=== PATIENT | female | born 2005 | race Caucasian/White ===

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

== ENCOUNTER 2023-04-03 13:51 | Outpatient (AMB) | payer OTHER, SELFPAY ==
[2023-04-03 14:21] VITALS: BP 118/66; PULSE 66; O2SAT 98; BMI 27.4
--- NOTE | 2023-04-03 14:21 | A.OFFVIS_ITS ---
Intake Vital Signs 04/03/23 14:21 Height 5 ft 4 in Weight 159 lb 8 oz BMI 27.4 BP 118/66 Blood Pressure Location Lt brachial Position Sitting Pulse 66 Pulse Source Pulse Oximeter Pulse Oximetry (%) 98 Oxygen Delivery Method Room Air Intake Visit Reasons: 3month follow up Tension MEDRANO/Migraine with Aura-LVM Intake Note: Pt presents to the office today for a 3 month follow up for tension headaches/migraine with aura. Pt states she started the amitryptyline. pt states she used it everyday for a month but noticed that she had an increased appetite and she states that she struggles with her weight in general so she decided to stop taking it and since then she denies any headaches or migraines at this time. Allergies tree nut Allergy (Severe, Verified 04/03/23 14:23) Anaphylaxis HPI HPI Comments History of Present Illness Details 17-yr-old female presents for f/u visit. Pt denies any significant interval medical changes. Pt stopped Amitriptyline, as it caused significant increased headaches. She has had an occasional regular headache- usually triggered by not eating or sleeping. Using OTC Naproxen less than once a week. Has not had any stabbing headaches. So has not tried Indomethacin yet. Has not had any recent migraine attacks. So has not tried Rizatriptan yet. She has been trying to prioritizing sleeping well and trying to exercise more- cardio and some weight training. [facility] Family History Father Hypertension Alcohol intake: never Patient Tobacco Use Status: Never used Tobacco Review of Systems Const All systems reviewed & are unremarkable except as noted in HPI and below Physical Exam Vital Signs: Last Vital Signs Pulse 66 04/03/23 14:21 BP 118/66 04/03/23 14:21 Pulse Ox 98 04/03/23 14:21 Oxygen Delivery Method Room Air 04/03/23 14:21 BMI result Body Mass Index 27.4 Const General: cooperative and no acute distress Orientation/consciousness: patient oriented x3 HEENT Head: Yes normocephalic Resp Effort & Inspection: normal respiratory effort and able to speak in complete sentences Neuro General: patient oriented x3, gait normal and CN's II-XI intact bilaterally Cognition (Neuro): normal cognition Motor exam (neuro): 5/5 motor strength present throughout Psych Appearance: grossly normal Mental Status: mental status grossly normal Speech and movement: Normal speech and movement present Affect: normal affect Attitude: cooperative Thought process: Normal thought process present Thought content: Normal thought content present Insight: Good insight present (Psych) Judgement: Good judgement present (Psych) Assessment & Plan Assessment & Plan (1) Migraine with aura: Code(s): G43.109 - Migraine with aura, not intractable, without status migrainosus (2) Stabbing headache: Code(s): G44.85 - Primary stabbing headache (3) Headache: Code(s): R51.9 - Headache, unspecified Plan ?For overall headache management: Continue to optimize good self-care, including but not limited to maintaining a healthy diet, adequate fluid intake, adequate sleep, and engaging in regular physical activity. For headache triggers: Track headaches. Light sensitivity tips:Patient may try blue light filtering glasses, green glasses, green light therapy. For sleep: Continue strategies to optimize sleep hygiene. ? For stabbing headache w/o autonomic s/s: Trial Indomethacin 25mg po tid prn- take w/ food- do not take w/ OTC NSAID- initially try at 1st sign of stabbing headache, depending on response may need to try scheduled dose. ? For acute headache treatment: Trial Rizatriptan 10mg tab, 1/2 - 1 tab (5-10mg) at onset of headache, may repeat in 2 hours. Max of 2 tabs (200mg) per 24 hours. May adjunct with OTC Tylenol 650mg q 4 hours, Ibuprofen (liquigel) 600mg q 6 hours, or Naproxen (liquigel) 440mg q 12 hrs prn. Reviewed potential adverse effects of triptans, including but not limited to nausea, fatigue, chest tightness/tingling (usually passes within a few minutes), medication overuse headaches. Previous acute migraine medication trials: Sumatriptan- not fully effective and causes neck stiffness. Acute migraine medication contraindications: None at this time ? For headache prevention medication: Pt stopped Amitriptyline to 37.5mg po qhs. May hold preventive tx at this time. Previous migraine prevention medication trials: Cyproheptadine- ineffective and caused increased appetite. B2 and Mag- ineffective. Migraine prevention medication contraindications: Amitriptyline 37.5mg po qhs- caused increased appetite Future considerations: Propranolol, Topiramate ? f/u in 6 months or sooner prn Coding Level of Care Code Est Pt Level 4 (40132) Diagnoses Migraine with aura G43.109 Stabbing headache G44.85 Headache R51.9
== END 2023-04-03 14:50 | disposition home or self-care (01) ==
PROVIDERS: Visit Provider Nurse Practitioner Family
DX: G43.109 Migraine with aura, not intractable, without status migrainosus (principal); G44.85 Primary stabbing headache
CPT/HCPCS: 99214

== ENCOUNTER → 2023-04-03 13:51 | Outpatient (BNVA) | payer OTHER, SELFPAY | PROVIDERS: Visit Provider Nurse Practitioner Family | DX: R51.9 Headache, unspecified (principal); G44.85 Primary stabbing headache ==

== ENCOUNTER 2023-10-01 09:52 | Outpatient (AMB) | payer OTHER, BC, SELFPAY ==
[2023-10-01 10:11] VITALS: BP 118/72; PULSE 81; O2SAT 98; BMI 27.3
--- NOTE | 2023-10-01 10:11 | MHC.OFFVIS ---
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 Pt denies any significant interval medical changes. Pt reports headaches had increased headaches in the month following her last appt here in Mar. She thinks this was r/t stress and school. Then in her spring- her migraines increased in June and at the end of August and beginning of September. The headaches have since decreased. She has tried Rizatriptan prn- usually after taking Ibuprofen 600mg- and it has been helpful. She has not had the more stabbing and throbbing. So has not yet tried Indomethacin. Baseline headache characteristics: Stabbing headache questionnaire: Severe, comes on suddenly, maybe a twinge/pressure, stabbing/pulsating pain in right upper temporal region, which lasts 20 minutes may then turn into a mild headache that responds Prodrome symptoms: Maybe tired afterwards Migraine headache questionnaire: Aura: Starts with difficulty seeing a letter then blurry vision and watery eyes. Occasionally will also have speech difficulties (not sure what she was saying), unilateral arm tingling, face felt weird like it was droopy but it wasn't). Headache: 8-10/10, Holocranial, throbbing and aching pain a/w photophobia, phonophobia, tiredness. Postdrome: exhaustion PFSH Family History Father Hypertension Social History Alcohol intake: never Patient Tobacco Use Status: Never used Tobacco Physical Exam Vital Signs: Last Vital Signs Pulse 81 10/01/23 10:11 BP 118/72 10/01/23 10:11 Pulse Ox 98 10/01/23 10:11 Oxygen Delivery Method Room Air 10/01/23 10:11 BMI result Body Mass Index 27.3 Const General: cooperative and no acute distress Orientation/consciousness: patient oriented x3 Resp Effort & Inspection: normal respiratory effort and able to speak in complete sentences Neuro General: patient oriented x3 Cranial nerves: Yes CN's II-XII intact bilaterally Cognition (Neuro): normal cognition Psych Appearance: grossly normal Mental Status: mental status grossly normal Speech and movement: Normal speech and movement present Affect: normal affect Attitude: cooperative Assessment & Plan Assessment & Plan (1) Migraine with aura: Code(s): G43.109 - Migraine with aura, not intractable, without status migrainosus Category: Medical (2) Stabbing headache: Code(s): G44.85 - Primary stabbing headache Category: Medical Plan For overall headache management: Continue to optimize good self-care, including but not limited to maintaining a healthy diet, adequate fluid intake, adequate sleep, and engaging in regular physical activity. For headache triggers: Track headaches. Light sensitivity tips:Patient may try blue light filtering glasses, green glasses, green light therapy. For sleep: Continue strategies to optimize sleep hygiene. ? For stabbing headache w/o autonomic s/s: When headache returns, try Indomethacin 25mg po tid prn- take w/ food- do not take w/ OTC NSAID- initially try at 1st sign of stabbing headache, depending on response may need to try scheduled dose. ? For acute headache treatment: Continue Rizatriptan 10mg tab, 1/2 - 1 tab (5-10mg) at onset of headache, may repeat in 2 hours. Max of 2 tabs (200mg) per 24 hours. May adjunct with OTC Tylenol 650mg q 4 hours, Ibuprofen (liquigel) 600mg q 6 hours, or Naproxen (liquigel) 440mg q 12 hrs prn. Previous acute migraine medication trials: Sumatriptan- not fully effective and causes neck stiffness. Acute migraine medication contraindications: None at this time ? For headache prevention medication: Trial Propranolol 10mg bid. Monitor for lightheadedness. Previous migraine prevention medication trials: Cyproheptadine- ineffective and caused increased appetite. B2 and Mag- ineffective. Migraine prevention medication contraindications: Amitriptyline 37.5mg po qhs- caused increased appetite Future considerations: CGRP MaB. ? f/u in 6 months or sooner prn Medications: New propranolol 10 mg PO BID 30 days 60 tabs 3RF Coding Level of Care Code Est Pt Level 4 (24566) Diagnoses Migraine with aura G43.109 Stabbing headache G44.85
== END 2023-10-01 10:53 | disposition home or self-care (01) ==
PROVIDERS: PCP Pediatrics Adolescent Medicine; Visit Provider Nurse Practitioner Family
DX: G43.109 Migraine with aura, not intractable, without status migrainosus (principal); G44.85 Primary stabbing headache
CPT/HCPCS: 99214

== ENCOUNTER → 2023-10-01 09:52 | Outpatient (BNVA) | payer OTHER, BC, SELFPAY | PROVIDERS: PCP Pediatrics Adolescent Medicine; Visit Provider Nurse Practitioner Family ==

== ENCOUNTER 2024-05-04 11:21 | Outpatient (AMB) | payer BC, SELFPAY ==
--- OUTSIDE RECORDS SUMMARY | 2024-05-04 11:23 | XMS_ITS ---
Author Organization [facility] Address [address] [place] [address] Care Team Providers Care Blade Groover Name Role Phone ZACHARIAH RESENDIZ Unavailable [phone] REASON FOR VISIT Epi Pen Encounters Encounter Location Date Provider Diagnosis [id number] [address] 04/24/2024 ZACHARIAH RESENDIZ PLAN OF TREATMENT Next Appt Details Provider Name:ZACHARIAH RESENDIZ, 01/04/2025 08:15:00 AM, [address], [place], [address], Progress Notes * Richard BAÑUELOSOB:2005 (18 yo F)Acc No.[id number]:04/24/2024 Patient:??Anna BAÑUELOS :2005?Age:18 Y?Sex:Fe male Address:[address] [place] [address], [place] [address] * true * Date:??
--- OUTSIDE RECORDS SUMMARY | 2024-05-04 11:23 | XMS_ITS ---
Author Organization [email or web address] [facility] Address [address] [place] [address] Care Team Providers Care Coding Specialist Home Health Name Role Phone WENDY RESENDIZEN Unavailable [phone] REASON FOR VISIT Epi pen prescription MEDICATIONS Medication SIG (Take, Route, Frequency, Duration) Notes Start Date End Date Status EPINEPHrine 0.3 MG/0.3ML as directed Inj ection once for 1 days 04/24/2024 Active Encounters Encounter Location Date Provider Diagnosis [facility] [address] [place] [id number] 04/24/2024 ZACHARIAH RESENDIZ PLAN OF TREATMENT Medication Medication Name Sig Start Date Stop Date Notes EPINEPHrine 0.3 MG/0.3ML as directed Inj ection once for 1 days 04/24/2024 Next Appt Details Provider Name:ZACHARIAH RESENDIZ, 01/04/2025 08:15:00 AM, [address] , [place], [address], Progress Notes * Richard BAÑUELOSOB:2005 (18 yo F)Acc No.[id number]:04/24/2024 Patient:??Anna BAÑUELOS :2005?Age:18 Y?Sex:Fe male Address:[address], [place] [address] * Refills?? Start EPINEPHrine Solution Auto-injector, 0.3 MG/0.3ML, Injection, 2, as directed, once, 1 days, Refills=1 * true * Date:??
--- OUTSIDE RECORDS SUMMARY | 2024-05-04 11:24 | XMS_ITS | Patient Health Record ---
Author Organization [facility] Address [address] [place] [address] Care Team Providers Care Ada Accommodation Consultant Name Role Phone ZACHARIAH RESENDIZ Unavailable [phone] Cassidy Ulloa Unavailable [phone] ALLERGIES Allergen (clinical drug ingredient) Drug/Non Drug Allergy documented on EMR Reaction Allergy Type Onset Date Status polymyxin B Polymyxin B hives Drug Allergy Act luann Tree Nuts anaphylaxis Allergy Active trimethoprim Trimethoprim hives Drug Allergy A ctive REASON FOR REFERRAL No Information MEDICATIONS Medication SIG (Take, Route, Frequency, Duration) Notes Start Date End Date Status Rizatriptan Benzoate 10 MG 1 tablet Oral ly Once a day Not-Taking IUD's Active Amitriptyline HCl 25 MG 1 and 1/2 tablet s at bedtime Orally Once a day Not-Taking Naproxen 500 MG 1 tablet as needed Orally every 12 hrs Not-Taking Ibuprofen 600 MG 1 tablet with food o r milk as needed Orally Three times a day Active EPINEPHrine 0.3 MG/0.3ML as directed Inj ection once for 1 days 04/24/2024 Active SOCIAL HISTORY Tobacco Use: Social History Observation Description Date Details (start date - stop date) Never Smoker NA - NA Sex Assigned At : Social History Observation Description Sex Assigned At Unknown Tobacco Use/Smoking Question Answer Notes Are you a nonsmoker Alcohol Screen (Audit-C) Question Answer Notes Did you have a drink containing alcohol in the p ast year? No Points 0 Interpretation Negative Section Notes: Tob: Non smoker ETOH: Non smoker [facility] PT Tob: Non smoker ETOH: Non smoker [facility] PT Tob: Non smoker ETOH: Non smoker PROBLEMS Problem Type ICD Code Onset Dates Problem Status W/U Status Risk SNOMED Code Notes Problem Coagulation defect, unspecified (D68.9) Active confirmed Coagulation disorder (35023673) Problem Migraine, unspecified, not intractable, with status migrainosus (G43.901) Active confirmed Status migrainosus (179572765) Problem Adult general medical exam (Z00.00) Active confirmed Adult health examination (002836532) Problem Chronic iron deficiency anemia (D50.9) Active confirmed Iron deficien cy anemia (05875319) Problem Encounter for screening for endocrine disorder (Z13.29) Active confirmed Endocrine/metab olic screening (634595865) VITAL SIGNS Heart Rate 79 /min 01/02/2024 Oximetry 99 % 01/02/2024 Blood pressure diastolic 70 mm Hg 01/02/2024 Height 64 in 01/02/2024 Blood pressure systolic 118 mm Hg 01/02/2024 Weight 163.0 lbs 01/02/2024 BMI 27.98 kg/m2 01/02/2024 Encounters Encounter Location Date Provider Diagnosis [address] [facility] [address] [place] [address] 11/27/2023 Cassidy Ulloa [facility] [address] [place] [address] 01/02/2024 ZACHARIAH RESENDIZ Coagulation defect, unspecified D68.9 ; Annual physical exam Z00.00 ; Chronic iron deficiency anemia D50.9 and Migraine, unspecified, not intractable, with status migrainosus G43.[address] [place] [address] 11/21/[address] [facility] [facility] [address] [place] [address] 11/22/2023 ZACHARIAH MARTÍN [facility] [address] [place] [address] 02/03/2024 ZACHARIAH MARTÍN [address] [place] [address] 03/11/2024 ZACHARIAH MARTÍN [address] [place] [address] 04/24/2024 ZACHARIAH MARTÍN [address] [place] [address] 11/19/2023 ZACHARIAH MARTÍN [address] [place] [address] 11/27/2023 ZACHARIAH MARTÍN [address] [place] [address] 02/03/2024 ZACHARIAH RESENDIZ [address] [address] 02/03/2024 ZACHARIAH RESENDIZ [address] [address] 02/04/2024 ZACHARIAH RESENDIZ [address] [address] 04/24/2024 ZACHARIAH RESENDIZ ASSESSMENTS Encounter Date Diagnosis Assessment Notes Treatment Notes Treatment Clinical Notes Section Notes 01/02/2024 Coagulation defect, unspecified (ICD-10 - D68.9) # Chronic iron def. Hx of. Reassess CBC. Lab slip given # Coagulation defect. Eval'd by heme, ? borderline VWB. PT?INR normal # Migraines. Well controlled. # Screenings: UTD # Vaccines: UTD Patient seen and examined. Comprehensive discussion was done on the following. 1. Nutrition: It is important to follow a healthy diet based on lots of vegetables and legumes and good fat. Avoid processed food and processed carbohydrates. Learn to prepare your own meals. Learn to read labels and avoid high fructose corn syrup, processed chemicals added to increase shelf life and preprepared meals. Avoid fast foods. Learn to eat slowly and plan meals for a week. Try to count calories and be mindful off daily calorie intake. Get into the habit of keeping an eye on your weight by using an appropriate scale. Learn to log exercise and discussed fitness Apps like Entelo which can help keep log off calories taken versus calories burned. Local food should be preferred. Discussed Dirty Dozen Versus Clean Fifteen. Discussed healthy supplements like fish oil, Tumeric, Curcumin, Melatonin, Resveratrol, Probiotics, Vitamin-D, Alpha-Lipoic acid, Vitamin-D and coconut oil. 2. It is important to exercise regularly. Is a good habit to walk at least 30-45 minutes a day. Gentle weightlifting with standard precautions to protect the back. Finding activity like cycling or hiking and get into the habit of engaging in it. Stretching before and after the exercises important. It is also important to contact me if there are any problems like shortness of breath, chest pain, back pain and joint or muscle pain associated with the exercise. 3. Discussed age appropriate screening guidelines. Colonoscopy needs to start at age 50 with stool for occult blood as appropriate. There is a new test that can test for genetic abnormalities in the stool sample. This would not replace a colonoscopy but could be used as a screening tool for patients who do not want a colonoscopy. We discussed the importance of early detection of colon cancer. 4. Discussed current guidelines with respect to breast examination, mammogram and pap smear for early detection of breast and cervical cancer. Patient advised to follow up with these appointments. 5. Discussed safe driving and no use of smart phone while driving 6. Age-appropriate immunizations were discussed. A tetanus booster is needed every 10 years. Flu vaccine is recommended every year just before the start of the flu season. Shingles vaccine is recommended after age 50 but not all insurances cover it.Pneumonia vaccine is given after age 65 unless there are certain comorbidities for which it is started earlier. 7. Diagnostic labs were discussed. These could include CBC CMP and lipids with fasting blood glucose and insulin levels. Vitamin D and hemoglobin A1c testing might be appropriate. Case discussed with collaborating physician Gil Vargas who reviewed the assessment and plan. Chart, medications, labs, vital signs reviewed. Dictation was accomplished with the use of [employer] voice recognition software, prone to medical misidentifications and grammatical errors. This is unintentional and the practitioner does try to identify and correct these, but some could still be present. Please do not hesitate to contact practitioner for clarification. All questions answered to patients satisfaction. Patient verbalized understanding of diagnosis and treatments explained. To call sooner prior to next visit it any questions/concerns arise. 01/02/2024 Annual physical exam (ICD-10 - Z00.00) # Chronic iron def. Hx of. Reassess CBC. Lab slip given # Coagulation defect. Eval'd by heme, ? borderline VWB. PT?INR normal # Migraines. Well controlled. # Screenings: UTD # Vaccines: UTD Patient seen and examined. Comprehensive discussion was done on the following. 1. Nutrition: It is important to follow a healthy diet based on lots of vegetables and legumes and good fat. Avoid processed food and processed carbohydrates. Learn to prepare your own meals. Learn to read labels and avoid high fructose corn syrup, processed chemicals added to increase shelf life and preprepared meals. Avoid fast foods. Learn to eat slowly and plan meals for a week. Try to count calories and be mindful off daily calorie intake. Get into the habit of keeping an eye on your weight by using an appropriate scale. Learn to log exercise and discussed fitness Apps like Entelo which can help keep log off calories taken versus calories burned. Local food should be preferred. Discussed Dirty Dozen Versus Clean Fifteen. Discussed healthy supplements like fish oil, Tumeric, Curcumin, Melatonin, Resveratrol, Probiotics, Vitamin-D, Alpha-Lipoic acid, Vitamin-D and coconut oil. 2. It is important to exercise regularly. Is a good habit to walk at least 30-45 minutes a day. Gentle weightlifting with standard precautions to protect the back. Finding activity like cycling or hiking and get into the habit of engaging in it. Stretching before and after the exercises important. It is also important to contact me if there are any problems like shortness of breath, chest pain, back pain and joint or muscle pain associated with the exercise. 3. Discussed age appropriate screening guidelines. Colonoscopy needs to start at age 50 with stool for occult blood as appropriate. There is a new test that can test for genetic abnormalities in the stool sample. This would not replace a colonoscopy but could be used as a screening tool for patients who do not want a colonoscopy. We discussed the importance of early detection of colon cancer. 4. Discussed current guidelines with respect to breast examination, mammogram and pap smear for early detection of breast and cervical cancer. Patient advised to follow up with these appointments. 5. Discussed safe driving and no use of smart phone while driving 6. Age-appropriate immunizations were discussed. A tetanus booster is needed every 10 years. Flu vaccine is recommended every year just before the start of the flu season. Shingles vaccine is recommended after age 50 but not all insurances cover it.Pneumonia vaccine is given after age 65 unless there are certain comorbidities for which it is started earlier. 7. Diagnostic labs were discussed. These could include CBC CMP and lipids with fasting blood glucose and insulin levels. Vitamin D and hemoglobin A1c testing might be appropriate. Case discussed with collaborating physician Gil Vargas who reviewed the assessment and plan. Chart, medications, labs, vital signs reviewed. Dictation was accomplished with the use of [employer] voice recognition software, prone to medical misidentifications and grammatical errors. This is unintentional and the practitioner does try to identify and correct these, but some could still be present. Please do not hesitate to contact practitioner for clarification. All questions answered to patients satisfaction. Patient verbalized understanding of diagnosis and treatments explained. To call sooner prior to next visit it any questions/concerns arise. 01/02/2024 Chronic iron deficiency anemia (ICD-10 - D50.9) # Chronic iron def. Hx of. Reassess CBC. Lab slip given # Coagulation defect. Eval'd by heme, ? borderline VWB. PT?INR normal # Migraines. Well controlled. # Screenings: UTD # Vaccines: UTD Patient seen and examined. Comprehensive discussion was done on the following. 1. Nutrition: It is important to follow a healthy diet based on lots of vegetables and legumes and good fat. Avoid processed food and processed carbohydrates. Learn to prepare your own meals. Learn to read labels and avoid high fructose corn syrup, processed chemicals added to increase shelf life and preprepared meals. Avoid fast foods. Learn to eat slowly and plan meals for a week. Try to count calories and be mindful off daily calorie intake. Get into the habit of keeping an eye on your weight by using an appropriate scale. Learn to log exercise and discussed fitness Apps like Entelo which can help keep log off calories taken versus calories burned. Local food should be preferred. Discussed Dirty Dozen Versus Clean Fifteen. Discussed healthy supplements like fish oil, Tumeric, Curcumin, Melatonin, Resveratrol, Probiotics, Vitamin-D, Alpha-Lipoic acid, Vitamin-D and coconut oil. 2. It is important to exercise regularly. Is a good habit to walk at least 30-45 minutes a day. Gentle weightlifting with standard precautions to protect the back. Finding activity like cycling or hiking and get into the habit of engaging in it. Stretching before and after the exercises important. It is also important to contact me if there are any problems like shortness of breath, chest pain, back pain and joint or muscle pain associated with the exercise. 3. Discussed age appropriate screening guidelines. Colonoscopy needs to start at age 50 with stool for occult blood as appropriate. There is a new test that can test for genetic abnormalities in the stool sample. This would not replace a colonoscopy but could be used as a screening tool for patients who do not want a colonoscopy. We discussed the importance of early detection of colon cancer. 4. Discussed current guidelines with respect to breast examination, mammogram and pap smear for early detection of breast and cervical cancer. Patient advised to follow up with these appointments. 5. Discussed safe driving and no use of smart phone while driving 6. Age-appropriate immunizations were discussed. A tetanus booster is needed every 10 years. Flu vaccine is recommended every year just before the start of the flu season. Shingles vaccine is recommended after age 50 but not all insurances cover it.Pneumonia vaccine is given after age 65 unless there are certain comorbidities for which it is started earlier. 7. Diagnostic labs were discussed. These could include CBC CMP and lipids with fasting blood glucose and insulin levels. Vitamin D and hemoglobin A1c testing might be appropriate. Case discussed with collaborating physician Gil Vargas who reviewed the assessment and plan. Chart, medications, labs, vital signs reviewed. Dictation was accomplished with the use of [employer] voice recognition software, prone to medical misidentifications and grammatical errors. This is unintentional and the practitioner does try to identify and correct these, but some could still be present. Please do not hesitate to contact practitioner for clarification. All questions answered to patients satisfaction. Patient verbalized understanding of diagnosis and treatments explained. To call sooner prior to next visit it any questions/concerns arise. 01/02/2024 Migraine, unspecified, not intractable, with status migrainosus (ICD-10 - G43.901) # Chronic iron def. Hx of. Reassess CBC. Lab slip given # Coagulation defect. Eval'd by heme, ? borderline VWB. PT?INR normal # Migraines. Well controlled. # Screenings: UTD # Vaccines: UTD Patient seen and examined. Comprehensive discussion was done on the following. 1. Nutrition: It is important to follow a healthy diet based on lots of vegetables and legumes and good fat. Avoid processed food and processed carbohydrates. Learn to prepare your own meals. Learn to read labels and avoid high fructose corn syrup, processed chemicals added to increase shelf life and preprepared meals. Avoid fast foods. Learn to eat slowly and plan meals for a week. Try to count calories and be mindful off daily calorie intake. Get into the habit of keeping an eye on your weight by using an appropriate scale. Learn to log exercise and discussed fitness Apps like Entelo which can help keep log off calories taken versus calories burned. Local food should be preferred. Discussed Dirty Dozen Versus Clean Fifteen. Discussed healthy supplements like fish oil, Tumeric, Curcumin, Melatonin, Resveratrol, Probiotics, Vitamin-D, Alpha-Lipoic acid, Vitamin-D and coconut oil. 2. It is important to exercise regularly. Is a good habit to walk at least 30-45 minutes a day. Gentle weightlifting with standard precautions to protect the back. Finding activity like cycling or hiking and get into the habit of engaging in it. Stretching before and after the exercises important. It is also important to contact me if there are any problems like shortness of breath, chest pain, back pain and joint or muscle pain associated with the exercise. 3. Discussed age appropriate screening guidelines. Colonoscopy needs to start at age 50 with stool for occult blood as appropriate. There is a new test that can test for genetic abnormalities in the stool sample. This would not replace a colonoscopy but could be used as a screening tool for patients who do not want a colonoscopy. We discussed the importance of early detection of colon cancer. 4. Discussed current guidelines with respect to breast examination, mammogram and pap smear for early detection of breast and cervical cancer. Patient advised to follow up with these appointments. 5. Discussed safe driving and no use of smart phone while driving 6. Age-appropriate immunizations were discussed. A tetanus booster is needed every 10 years. Flu vaccine is recommended every year just before the start of the flu season. Shingles vaccine is recommended after age 50 but not all insurances cover it.Pneumonia vaccine is given after age 65 unless there are certain comorbidities for which it is started earlier. 7. Diagnostic labs were discussed. These could include CBC CMP and lipids with fasting blood glucose and insulin levels. Vitamin D and hemoglobin A1c testing might be appropriate. Case discussed with collaborating physician Gil Vargas who reviewed the assessment and plan. Chart, medications, labs, vital signs reviewed. Dictation was accomplished with the use of [employer] voice recognition software, prone to medical misidentifications and grammatical errors. This is unintentional and the practitioner does try to identify and correct these, but some could still be present. Please do not hesitate to contact practitioner for clarification. All questions answered to patients satisfaction. Patient verbalized understanding of diagnosis and treatments explained. To call sooner prior to next visit it any questions/concerns arise. PLAN OF TREATMENT Pending Test Test Name Order Date PT/INR 10/16/2022 COMPREHENSIVE METABOLIC PANEL 01/02/2024 CBC (INCLUDES DIFF/PLT) 01/02/2024 TSH W/REFLEX TO FT4 01/02/2024 Next Appt Details Provider Name:ZACHARIAH RESENDIZ, 01/04/2025 08:15:00 AM, [address], [place], [address], Insurance Providers Payer Name Payer Address Payer Phone Subscriber Number Group Number Insured Name Patient Relationship to Insured Coverage Start Date Coverage End Date [facility] [address] [place] [address] [phone] [id number] Anna Kan Self - patient is the insured 3 MEDICAL (GENERAL) HISTORY Medical History History ICD Code Migraine, unspecified, not intractable, without status migrainosus G43.909 Seasonal allergies J30.2 Iron deficiency anemia, unspecified D50. 9 Borderline Von Willebrand Surgical History Surgery Date(Month/Year) Septoplasty Nasal 09/01/2020
--- OUTSIDE RECORDS SUMMARY | 2024-05-04 11:24 | XMS_ITS ---
Author Organization [facility] Address [address] [place] [address] Care Team Providers Care Food Service Employee Name Role Phone ZACHARIAH RESENDIZ Unavailable [phone] REASON FOR VISIT anxiety Encounters Encounter Location Date Provider Diagnosis [address] [place] [address] 03/11/2024 ZACHARIAH RESENDIZ PLAN OF TREATMENT Next Appt Details Provider Name:ZACHARIAH RESENDIZ, 01/04/2025 08:15:00 AM, [address], [place], [address], Progress Notes * Richard BAÑUELOSOB:2005 (18 yo F)Acc No.[id number]:03/11/2024 Patient:??Anna BAÑUELOS :2005?Age:18 Y?Sex:Fe male Address:[address] [place] [address], [place] [address] * true * Date:??
[2024-05-04 11:37] VITALS: BP 112/70; BMI 27.3
--- NOTE | 2024-05-04 11:37 | MHC.OFFVIS ---
Vital Signs 05/04/24 11:37 Height 5 ft 4 in Weight 159 lb BMI 27.3 BP 112/70 Blood Pressure Location Rt brachial Position Sitting Intake Visit Reasons: 7 Month F/U Intake Note: Patient presents for follow up Allergies tree nut Allergy (Severe, Verified 05/04/24 11:43) Anaphylaxis Medication List - Last Reconciled 05/04/24 by RONALD Peterson amitriptyline 37.5 mg (1.5 x 25 mg) PO BEDTIME 30 days epinephrine IM fremanezumab-vfrm (Ajovy) 675 mg (4.5 mL) subcut ONCE 90 days ibuprofen 600 mg PO Q6H indomethacin 25 mg PO TID PRN 30 days levonorgestrel (Liletta) intrauterine naproxen 250 mg PO BID PRN propranolol 10 mg PO BID 30 days rizatriptan 5 - 10 mg (0.5 - 1 x 10 mg) PO Q2H PRN 28 days HPI Comments Details: 18-yr-old female presents for f/u visit of migraine. Pt denies any significant interval medical changes. She will be doing a semester abroad in [place]- May 17-August 21, and asks if she can happen 90 day refill of her rizatriptan and for advice on how to transport Ajovy internationally. She did try the propranolol- stopped after 2 weeks- caused her to have a head curtis/tightness. Thus, patient was tried on Ajovy, which after a few months has become very effective in reducing her monthly migraine days. She has not had a migraine since January. She has an occasional mild headache. She has not needed to use Rizatriptan prn recently. More recently is using Ibuprofen 800 mg with good effect- does use this for over body aches and pains as well. She has not had the more stabbing and throbbing. So has not yet tried Indomethacin. Baseline headache characteristics: Stabbing headache questionnaire: Severe, comes on suddenly, maybe a twinge/pressure, stabbing/pulsating pain in right upper temporal region, which lasts 20 minutes may then turn into a mild headache that responds Prodrome symptoms: Maybe tired afterwards Migraine headache questionnaire: Aura: Starts with difficulty seeing a letter then blurry vision and watery eyes. Occasionally will also have speech difficulties (not sure what she was saying), unilateral arm tingling, face felt weird like it was droopy but it wasn't). Headache: 8-10/10, Holocranial, throbbing and aching pain a/w photophobia, phonophobia, tiredness. Postdrome: exhaustion PFSH Family History Father Hypertension Social History Alcohol intake: never Patient Tobacco Use Status: Never used Tobacco Physical Exam Vital Signs: Last Vital Signs BP 112/70 05/04/24 11:37 BMI result Body Mass Index 27.3 Const General: cooperative and no acute distress Orientation/consciousness: patient oriented x3 Resp Effort & Inspection: normal respiratory effort and able to speak in complete sentences Neuro General: patient oriented x3 Cranial nerves: Yes CN's II-XII intact bilaterally Cognition (Neuro): normal cognition Psych Appearance: grossly normal Mental Status: mental status grossly normal Speech and movement: Normal speech and movement present Affect: normal affect Attitude: cooperative Assessment & Plan Assessment & Plan (1) Migraine with aura: Code(s): G43.109 - Migraine with aura, not intractable, without status migrainosus Category: Medical (2) Stabbing headache: Code(s): G44.85 - Primary stabbing headache Category: Medical Plan For overall headache management: Continue to optimize good self-care, including but not limited to maintaining a healthy diet, adequate fluid intake, adequate sleep, and engaging in regular physical activity. For headache triggers: Track headaches. Light sensitivity tips:Patient may try blue light filtering glasses, green glasses, green light therapy. For sleep: Continue strategies to optimize sleep hygiene. ? For stabbing headache w/o autonomic s/s: When headache returns, try Indomethacin 25mg po tid prn- take w/ food- do not take w/ OTC NSAID- initially try at 1st sign of stabbing headache, depending on response may need to try scheduled dose. ? For acute headache treatment: Continue ibuprofen 800 mg t.i.d. p.r.n.- we will send a prescription for this, as in [place], a prescription is required for all NSAIDs. Continue Rizatriptan 10mg tab, 1/2 - 1 tab (5-10mg) at onset of headache, may repeat in 2 hours. Max of 2 tabs (200mg) per 24 hours. May adjunct with OTC Tylenol 650mg q 4 hours, Ibuprofen (liquigel) 600mg q 6 hours, or Naproxen (liquigel) 440mg q 12 hrs prn. Previous acute migraine medication trials: Sumatriptan- not fully effective and causes neck stiffness. Acute migraine medication contraindications: None at this time ? For headache prevention medication: Continue Ajovy, as patient has had greater than 50% reduction monthly migraine days. As she has tolerated Ajovy well, and will be traveling for a semester abroad, adjust Ajovy dosing from 225 mg subcu q.month to 675 mg subcu Q 3 months. Previous migraine prevention medication trials: Cyproheptadine- ineffective and caused increased appetite. B2 and Mag- ineffective. Migraine prevention medication contraindications: Amitriptyline 37.5mg po qhs- caused increased appetite. Propranolol 10mg bid- not tolerated. Future considerations: CGRP MaB. All current medication orders refilled with 90 day supply to accommodate per patient's upcoming semester abroad traveled to [facility]. She is advised to carry on medications in their original prescription bottles. She will take her Ajovy on the day she is leaving for [facility]- as this is the day she is due for her next Ajovy injection. ? f/u in 6 months or sooner prn Medications: New ibuprofen 800 mg PO Q6-8H PRN 90 tabs 1RF pain 90 days Changed From fremanezumab-vfrm (Ajovy) administer 225mg sc q month 225 mg (1.5 mL) subcut ONCE 30 days 1.5 mL 6RF To fremanezumab-vfrm (Ajovy) administer 225mg x's 3 (total 675mg) sc q 3 month 675 mg (4.5 mL) subcut ONCE 4.5 mL 3RF 90 days From rizatriptan max 2 tabs per day or 4 tabs per week 5 - 10 mg (0.5 - 1 x 10 mg) PO Q2H 28 days PRN 12 tabs 3RF migraine headache To rizatriptan max 2 tabs per day or 4 tabs per week 5 - 10 mg (0.5 - 1 x 10 mg) PO Q2H PRN 36 tabs 3RF migraine headache 90 days Discontinued amitriptyline Discontinued Reason: Doctor's Order 37.5 mg (1.5 x 25 mg) PO BEDTIME 30 days 45 tabs 3RF propranolol Discontinued Reason: Doctor's Order 10 mg PO BID 30 days 60 tabs 3RF Coding Level of Care Code Est Pt Level 4 (47350) Diagnoses Migraine with aura G43.109 Stabbing headache G44.85
== END 2024-05-04 12:21 | disposition home or self-care (01) ==
PROVIDERS: PCP Physician Assistant Medical; Visit Provider Nurse Practitioner Family
DX: G43.109 Migraine with aura, not intractable, without status migrainosus (principal); G44.85 Primary stabbing headache
CPT/HCPCS: 99214

== ENCOUNTER 2024-11-02 11:17 | Outpatient (AMB) | payer BC, SELFPAY ==
[2024-11-02 11:30] VITALS: BP 110/78; PULSE 62; O2SAT 100; BMI 29.0
--- NOTE | 2024-11-02 11:30 | A.OFFVIS_ITS ---
Vital Signs 11/02/24 11:30 Height 5 ft 4 in Weight 169 lb BMI 29.0 BP 110/78 Blood Pressure Location Lt brachial Position Sitting Pulse 62 Pulse Source Pulse Oximeter Pulse Oximetry (%) 100 Oxygen Delivery Method Room Air Intake Visit Reasons: 6 Month F/U Intake Note: Patient presents follow up for migraines. Patient states migraines have been better and more under control. 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 Pt denies any significant interval medical changes. 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 Patient reports she is really having bothersome migraine attack. She continues to have occasional mild headache. She recently had a headache we are from the back of the head, that was not quite like a typical migraine, but responded well to a prn rizatriptan She continues to tolerate Ajovy well- notes she has this injection site discomfort and reaction when using abdomen versus anterior thigh injection site. She uses rizatriptan as needed, as well as Ibuprofen 800 mg with good effect. Uses ibuprofen for general body aches and pains as well. She had 1 recent episode of upper left frontal/parietal stabbing and throbbing headache, which was very intense and lasts for less than 5 minutes. She has not yet tried Indomethacin. Baseline headache characteristics: Stabbing headache questionnaire: Severe, comes on suddenly, maybe a twinge/pressure, stabbing/pulsating pain in right upper temporal region, which lasts 20 minutes may then turn into a mild headache that responds Prodrome symptoms: Maybe tired afterwards Migraine headache questionnaire: Aura: Starts with difficulty seeing a letter then blurry vision and watery eyes. Occasionally will also have speech difficulties (not sure what she was saying), unilateral arm tingling, face felt weird like it was droopy but it wasn't). Headache: 8-10/10, Holocranial, throbbing and aching pain a/w photophobia, phonophobia, tiredness. Postdrome: exhaustion PFSH Family History Father Hypertension Social History Alcohol intake: never Patient Tobacco Use Status: Never used Tobacco Physical Exam Vital Signs: Last Vital Signs Pulse 62 11/02/24 11:30 BP 110/78 11/02/24 11:30 Pulse Ox 100 11/02/24 11:30 Oxygen Delivery Method Room Air 11/02/24 11:30 BMI result Body Mass Index 29.0 Const General: cooperative and no acute distress Orientation/consciousness: patient oriented x3 Resp Effort & Inspection: normal respiratory effort and able to speak in complete sentences Neuro General: patient oriented x3 Cranial nerves: Yes CN's II-XII intact bilaterally Cognition (Neuro): normal cognition Psych Appearance: grossly normal Mental Status: mental status grossly normal Speech and movement: Normal speech and movement present Affect: normal affect Attitude: cooperative Assessment & Plan Assessment & Plan (1) Migraine with aura: Code(s): G43.109 - Migraine with aura, not intractable, without status migrainosus Category: Medical Qualifiers: Intractability: not intractable Status migrainosus presence: without status migrainosus Qualified Code(s): G43.109 - Migraine with aura, not intractable, without status migrainosus (2) Stabbing headache: Code(s): G44.85 - Primary stabbing headache Category: Medical Plan For overall headache management: Continue to optimize good self-care, including but not limited to maintaining a healthy diet, adequate fluid intake, adequate sleep, and engaging in regular physical activity. For headache triggers: Track headaches. Light sensitivity tips:Patient may try blue light filtering glasses, green glasses, green light therapy. For sleep: Continue strategies to optimize sleep hygiene. ? For stabbing headache w/o autonomic s/s: If stabbing headache becomes more frequent, try Indomethacin 25mg po tid prn- take w/ food- do not take w/ OTC NSAID- initially try at 1st sign of stabbing headache, depending on response may need to try scheduled dose. ? For acute headache treatment: Continue ibuprofen 800 mg t.i.d. p.r.n Continue Rizatriptan 10mg tab, 1/2 - 1 tab (5-10mg) at onset of headache, may r epeat in 2 hours. Max of 2 tabs (200mg) per 24 hours. May adjunct with OTC Tylenol 650mg q 4 hours, Ibuprofen (liquigel) 600mg q 6 hours, or Naproxen (liquigel) 440mg q 12 hrs prn. Previous acute migraine medication trials: Sumatriptan- not fully effective and causes neck stiffness. Acute migraine medication contraindications: None at this time ? For headache prevention medication: Continue Ajovy, as patient has had greater than 50% reduction monthly migraine days. Resume Ajovy 225 mg subcu q.month (however, patient may adjusted Ajovy to 675 mg subcu Q 3 months as needed). Previous migraine prevention medication trials: Cyproheptadine- ineffective and caused increased appetite. B2 and Mag- ineffective. Migraine prevention medication contraindications: Amitriptyline 37.5mg po qhs- caused increased appetite. Propranolol 10mg bid- not tolerated. ? f/u in 6 months or sooner prn Medications: Refilled rizatriptan max 2 tabs per day or 4 tabs per week 5 - 10 mg (0.5 - 1 x 10 mg) PO Q2H PRN 36 tabs 6RF migraine headache 90 days Coding Level of Care Code Est Pt Level 4 (15213) Diagnoses Migraine with aura and without status migrainosus, not intractable G43.109 Intractability: not intractable Status migrainosus presence: without status migrainosus Stabbing headache G44.85
--- OUTSIDE RECORDS SUMMARY | 2024-11-02 12:55 | XMS_ITS | Clinical Summary ---
Author Organization 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 Role Phone Pcp, No Primary Care Provider [phone] Allergies No known active allergies Medications Ajovy Autoinjector 225 mg/1.5 mL atIn 4 Active pseudoephedrine (SUDAFED) 120 mg 12 hr tablet Take 1 tablet (120 mg total) by mouth every 12 (twelve) hours 60 tablet 11 4 04/03/20 25 Active sodium chloride (OCEAN) 0.65 % nasal spray Instill 1 spray into each nostril as needed for congestion or rhinitis 15 mL 12 4 04/03/20 25 Active Active Problems No known active problems Social History Tobacco Use Types Packs/Day Years Used Date Smoking Tobacco: Never Passive Smoke Exposure: Never Smokeless Tobacco: Never Tobacco Cessation:Counseling Given: Not Answered Comments Unknown Sex and Gender Information Value Date Recorded Sex Assigned at Not on file Legal Sex Female 11:39 AM EST Gender Identity Not on file Sexual Orientation Not on file Last Filed Vital Signs Vital Sign Reading Time Taken Comments Blood Pressure 124/68 04/03/2024 11:35 AM EST Pulse 73 04/03/2024 11:35 AM EST Temperature 36.7 C (98 F) 04/03/2024 11:35 AM EST Respiratory Rate 18 04/03/2024 11:35 AM EST Oxygen Saturation 98% 04/03/2024 11:35 AM EST Inhaled Oxygen Concentration - - Weight - - Height - - Body Mass Index - - Plan of Treatment Health Maintenance Due Date Last Done Comments Depression: Screening Annually using PHQ-2/9 in Adults 18 yrs or above (or HM Modifier)([facility]) 09/09/2021 Hepatitis C Virus Infection in Adolescents and Adults: Screening (or Modifier) ([facility]) 09/09/2021 SDOH Screening Reminder: Annually for all adults ([facility]) 09/09/2021 COVID-19 Vaccine Screening: Initial Series and Booster Status ([facility]) (2023- season) 2024 Cervical Cancer Screenin-65 yrs of age (or Modifier) 09/09/2024 Cervical Cancer Screening: Pap every 3 yrs pts age 21-65 09/09/2024 Cervical Cancer: Pap Screening with Modifier timing ([facility]) 09/09/2024 Cervical Cancer: hrHPV alone or with cotesting Pap for Pts 30-65yrs screening every 5yrs ([facility]) 09/09/2024 DTaP/Tdap/Td Vaccines ([facility]) (7 - Td or Tdap) 11/11/2024 11/11/2014, 10/07/2008, 03/13/2005, Additional history exists Flu Vaccination: Yearly for ages 18mos through 64 years (or Modifier)([facility]) 12/11/2024 Zoster/Shingles Vaccine Series Screening: Adults aged 18+ yrs (or HM Modifiers)([facility]) (1 of 2) 09/09/2053 10/02/2007, 09/11/2004 Pneumococcal Vaccination Screening: Pts 0-19 & 19-49 yrs of age ([facility]) Aged Out 09/11/2004, 03/23/2004, 01/24/2004, Additional history exists No longer eligible based on patient's age to complete this topic Medical Devices Not on file Insurance [facility] Care 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
== END 2024-11-02 12:30 | disposition home or self-care (01) ==
LOC: HO.HSMS 11:18
PROVIDERS: PCP Physician Assistant Medical; Visit Provider Nurse Practitioner Family
DX: G43.109 Migraine with aura, not intractable, without status migrainosus (principal); G44.85 Primary stabbing headache
CPT/HCPCS: 99214

== ENCOUNTER → 2024-11-02 11:17 | Outpatient (BNVA) | payer BC, SELFPAY | PROVIDERS: PCP Physician Assistant Medical; Visit Provider Nurse Practitioner Family | DX: Z13.89 Encounter for screening for other disorder (principal) ==

== ENCOUNTER 2025-04-30 11:22 | Outpatient (AMB) | payer BC, SELFPAY ==
[2025-04-30 11:31] VITALS: BP 120/74; PULSE 86; O2SAT 99; BMI 29.9
--- NOTE | 2025-04-30 11:31 | A.OFFVIS_ITS ---
Vital Signs 04/30/25 11:31 Height 5 ft 4 in Weight 174 lb BMI 29.9 BP 120/74 Blood Pressure Location Rt brachial Position Sitting Pulse 86 Pulse Source Pulse Oximeter Pulse Oximetry (%) 99 Oxygen Delivery Method Room Air Intake Visit Reasons: 6m follow up Intake Note: Patient presents follow up for migraines. Patient states migraines have been better and more under control. 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 Pt denies any significant interval medical changes. 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 She has started doing PT clinics once a week. Patient reports she is rarely having a bothersome migraine attack. She may have an occasional mild headache. She continues to tolerate Ajovy well- notes she has this injection site discomfort and reaction when using abdomen versus anterior thigh injection site. She uses rizatriptan as needed, as well as Ibuprofen 800 mg with good effect. Uses ibuprofen for general body aches and pains as well. No recent reports of brief intense upper left frontal/parietal stabbing and throbbing headache. Baseline headache characteristics: Stabbing headache questionnaire: Severe, comes on suddenly, maybe a twinge/pressure, stabbing/pulsating pain in right upper temporal region, which lasts 20 minutes may then turn into a mild headache that responds Prodrome symptoms: Maybe tired afterwards Migraine headache questionnaire: Aura: Starts with difficulty seeing a letter then blurry vision and watery eyes. Occasionally will also have speech difficulties (not sure what she was saying), unilateral arm tingling, face felt weird like it was droopy but it wasn't). Headache: 8-10/10, Holocranial, throbbing and aching pain a/w photophobia, phonophobia, tiredness. Postdrome: exhaustion PFSH Family History Father Hypertension Social History Alcohol intake: never Patient Tobacco Use Status: Never used Tobacco Physical Exam Vital Signs: Last Vital Signs Pulse 86 04/30/25 11:31 BP 120/74 04/30/25 11:31 Pulse Ox 99 04/30/25 11:31 Oxygen Delivery Method Room Air 04/30/25 11:31 BMI result Body Mass Index 29.9 Const General: cooperative and no acute distress Orientation/consciousness: patient oriented x3 Resp Effort & Inspection: normal respiratory effort and able to speak in complete sentences Neuro General: patient oriented x3 Cranial nerves: Yes CN's II-XII intact bilaterally Cognition (Neuro): normal cognition Psych Appearance: grossly normal Mental Status: mental status grossly normal Speech and movement: Normal speech and movement present Affect: normal affect Attitude: cooperative Assessment & Plan Assessment & Plan (1) Migraine with aura: Code(s): G43.109 - Migraine with aura, not intractable, without status migrainosus Category: Medical Qualifiers: Intractability: not intractable Status migrainosus presence: without status migrainosus Qualified Code(s): G43.109 - Migraine with aura, not intractable, without status migrainosus (2) Stabbing headache: Code(s): G44.85 - Primary stabbing headache Category: Medical Plan For overall headache management: Continue to optimize good self-care, including but not limited to maintaining a healthy diet, adequate fluid intake, adequate sleep, and engaging in regular physical activity. For headache triggers: Track headaches. Light sensitivity tips:Patient may try blue light filtering glasses, green glasses, green light therapy. For sleep: Continue strategies to optimize sleep hygiene. ? For stabbing headache w/o autonomic s/s: If stabbing headache becomes more frequent, try Indomethacin 25mg po tid prn- take w/ food- do not take w/ OTC NSAID- initially try at 1st sign of stabbing headache, depending on response may need to try scheduled dose. ? For acute headache treatment: Continue ibuprofen 800 mg t.i.d. p.r.n Continue Rizatriptan 10mg tab, 1/2 - 1 tab (5-10mg) at onset of headache, may repeat in 2 hours. Max of 3 tabs (30 mg) per 24 hours or 6 tabs per week. May adjunct with OTC Tylenol 650mg q 4 hours, Ibuprofen (liquigel) 600-800mg every 6-8 hours, or Naproxen (liquigel) 440mg every 12 hrs prn. Previous acute migraine medication trials: Sumatriptan- not fully effective and causes neck stiffness. Acute migraine medication contraindications: None at this time ? For headache prevention medication: Continue Ajovy, as patient has had greater than 50% reduction monthly migraine days. * Ajovy 225 mg subcu injection, 225 mg injection every month or 675 mg injection every 3 months Previous migraine prevention medication trials: Cyproheptadine- ineffective and caused increased appetite. B2 and Mag- ineffective. Migraine prevention medication contraindications: Amitriptyline 37.5mg po qhs- caused increased appetite. Propranolol 10mg bid- not tolerated. ? f/u in 6 months or sooner prn Medications: Changed From rizatriptan max 2 tabs per day or 4 tabs per week 5 - 10 mg (0.5 - 1 x 10 mg) PO Q2H 90 days PRN 36 tabs 6RF migraine headache To rizatriptan max 3 tabs per day or 6 tabs per week 5 - 10 mg (0.5 - 1 x 10 mg) PO Q2H PRN 36 tabs 6RF migraine headache 90 days Refilled fremanezumab-vfrm (Ajovy) administer 225mg x's 3 (total 675mg) sc q 3 month 675 mg (4.5 mL) subcut ONCE 4.5 mL 3RF 90 days ibuprofen 800 mg PO Q6-8H PRN 90 tabs 1RF pain 90 days Coding Level of Care Code Est Pt Level 4 (96316) Diagnoses Migraine with aura and without status migrainosus, not intractable G43.109 Intractability: not intractable Status migrainosus presence: without status migrainosus Stabbing headache G44.85
--- OUTSIDE RECORDS SUMMARY | 2025-04-30 13:27 | XMS_ITS | Clinical Summary ---
Author Organization [facility] Address [address] [place] [address] Care Team Providers Care Manager [employer] Name Role Phone Ricardo Rai Primary Care Provider [phone] Allergies Active Allergy Reactions Criticality Noted Date Comments Tree Nuts Hives,Swelling High 02/11/2019 Medications naproxen (NAPROSYN) 500 mg tablet Take 500 mg by mouth 2 times a day. 0 9 Active ESTARYLLA 0.25-35 mg-mcg per tablet 9 Active ondansetron ODT (ZOFRAN ODT) 8 mg disintegrating tablet Dissolve 1 tablet (8 mg total) in the mouth every 8 hours as needed for nausea or vomiting. 30 tablet 5 0 Active ibuprofen (MOTRIN) 600 mg tablet One tablet every 6 hrs 100 tablet 2 2 Active EPINEPHrine (EPIPEN) 0.3 mg/0.3 mL injection syringe ADMINISTER 0.3 MG IN THE MUSCLE 1 TIME PARENT REQUESTING 90 DAY SUPPLY 2 Active ondansetron ODT (ZOFRAN ODT) 8 mg disintegrating tablet Dissolve 1 tablet (8 mg total) in the mouth every 8 hours as needed for nausea or vomiting. 30 tablet 5 2 Active SUMAtriptan (IMITREX) 50 mg tablet Take 1 tablet (50 mg total) by mouth once as needed for migraine (headache). May repeat one time after 2 hours if needed. 9 tablet 5 2 Active amitriptyline (ELAVIL) 25 mg tablet TAKE 1 TABLET(25 MG) BY MOUTH EVERY NIGHT 30 tablet 5 3 Active Active Problems Problem Noted Date Diagnosed Date Menorrhagia 09/14/2021 Migraine with aura 02/11/2019 H/O: menorrhagia 02/11/2019 Family History Medical History Relation Name Comments Migraines Father Anxiety disorder Father's Sister Migraines Father's Sister Migraines Paternal Grandmother Relation Name Status Comments Father Father's Sister Paternal Grandmother Social History Tobacco Use Types Packs/Day Years Used Date Smoking Tobacco: Never Assessed Comments Unknown Sex and Gender Information Value Date Recorded Sex Assigned at Not on file Legal Sex Female 11:56 AM EDT Gender Identity Not on file Sexual Orientation Not on file Last Filed Vital Signs Vital Sign Reading Time Taken Comments Blood Pressure 122/80 09/14/2021 11:22 AM EDT Pulse 83 09/14/2021 11:22 AM EDT Temperature - - Respiratory Rate - - Oxygen Saturation - - Inhaled Oxygen Concentration - - Weight 60.9 kg (134 lb 3.2 oz) 09/14/2021 11:22 AM EDT Height 163.1 cm (5' 4.21 ) 09/14/2021 11:22 AM E DT Body Mass Index 22.88 09/14/2021 11:22 AM EDT Plan of Treatment Health Maintenance Due Date Last Done Comments HIV Screening 2003 Pap Smear 2003 1 Week [facility] 2003 1 Month [facility] 2003 2 Month [facility] 2003 4 Month [facility] 01/02/2004 6 Month [facility] 03/02/2004 9 Month [facility] 05/31/2004 12 Month [facility] 2004 15 Month [facility] 11/27/2004 18 Month [facility] 02/25/2005 24 Month [facility] 08/24/2005 30 Month [facility] 12/28/2005 3 to 19 Year [facility] 09/09/2006 Well Child Check 09/09/2006 Alcohol/Substance Use Screening 05/13/2024 DTaP,Tdap,and Td Vaccines (7 - Td or Tdap) 11/11/2024 11/11/2014, 10/07/2008, 03/13/2005, Additional history exists Influenza Vaccine (#1) 2024 2, 01/24/2011, 01/02/2010, Additional history exists COVID-19 Vaccine ( - 2024-2 6 season) 2025 Hepatitis B Vaccines Completed 06/13/2004, 2003, 2003 Pneumococcal Vaccine: Pediat wesley (0-5 Years) and At-Risk Patients (6-50 Years) Completed 09/11/2004, 03/23/2004, 01/24/2004, Additional history exists MMR Vaccines Completed 10/02/2007, 12/14/2004 Varicella Vaccines Completed 10/02/2007, 09/11/2004 HPV Vaccines Completed 11/22/2016, 01/12, 11/07/2015 Meningococcal Vaccine Completed 12/10/2019, 015 [facility] ANNIKA FOX [employer] Care Teams Manager [employer] Relationship Specialty Start Date End Date Ricardo Rai [address] [place] [id number] PCP - General Pediatrics 01/13/19
--- OUTSIDE RECORDS SUMMARY | 2025-04-30 13:27 | XMS_ITS | Patient Health Record ---
Author Organization [facility] Address [address] [place] [address] Care Team Providers Care Rate Inserter Name Role Phone ZACHARIAH RESENDIZ Unavailable [phone] Allergies Allergen (clinical drug ingredient) Drug/Non Drug Allergy documented on EMR Reaction Allergy Type Onset Date Status polymyxin B Polymyxin B hives Drug Allergy Act luann Tree Nuts anaphylaxis Allergy Active trimethoprim Trimethoprim hives Drug Allergy A ctive Reason For Referral No Information Medications Medication SIG (Take, Route, Frequency, Duration) Notes Start Date End Date Status Ibuprofen 600 MG Tablet 1 tablet with fo od or milk as needed Orally Three times a day Active Ajovy 225 MG/1.5ML Solution Auto-injector 225 mg Subcutaneous monthly; Duration: 90 days Active EPINEPHrine 0.3 MG/0.3ML Solution Auto-injector as directed Injection once; Duration: 1 days 04/24/2024 Active Amitriptyline HCl 25 MG Tablet 1 and 1/2 tablets at bedtime Orally Once a day Not-Taking Naproxen 500 MG Tablet Delayed Release 1 tablet as needed Orally every 12 hrs Not-Taking Rizatriptan Benzoate 10 MG Tablet 1 tablet Orally Once a day Not-Taking IUD's Active Immunizations Vaccine Route Administration Date Status Comme nts Tdap Unknown 11/26/2023 Administered Social History Tobacco Use: Social History Observation Description Date Details (start date - stop date) Never Smoker NA - NA Social History Drugs/Alcohol: Social Info Question Answer Notes Alcohol Screen (Audit-C) Did you have a drink containing alcohol in the past year? No Points 0 Interpretation Negative Tobacco Use: Social Info Question Answer Notes Tobacco Use/Smoking Are you a nonsmoker Additional Details Category Social Info Options Details Drugs/Alcohol: Do you smoke marijuana? De nies Do you drink alcohol? No Section Notes: Tob: Non smoker ETOH: Non smoker [facility] Tob: Non smoker ETOH: Non smoker Tob: Non smoker ETOH: Non smoker [facility] Tob: Non smoker ETOH: Occasionally [facility] PT Lives at home Problems Problem Type SNOMED Code ICD Code Onset Dates Problem Status W/U Status Risk Notes Problem Coagulation disorder (01861015) Coagulation defect, unspecified (D68.9) Active confirmed Problem Status migrainosus (009284257) Migraine, unspecified, not intractable, with status migrainosus (G43.901) Active confirmed Problem Acquired hypothyroidism (214512067) Acquired hypothyroidism (E03.9) Active confirmed Problem Adult health examination (064758454) Adult general medical exam (Z00.00) Active confirmed Problem Iron deficiency anemia (39009693) Chronic iron deficiency anemia (D50.9) Active confirmed Problem Endocrine/metabol ic screening (124670167) Encounter for screening for endocrine disorder (Z13.29) Active confirmed Vital Signs Heart Rate 71 /min 01/04/2025 Oximetry 98 % 01/04/2025 Blood pressure diastolic 60 mm Hg 01/04/2025 Height 64 in 01/04/2025 Blood pressure systolic 114 mm Hg 01/04/2025 Weight 171.4 lbs 01/04/2025 BMI 29.42 kg/m2 01/04/2025 Encounters Encounter Location Date Provider Diagnosis [facility] [address] [place] [address] 01/04/2025 ZACHARIAH RESENDIZ Coagulation defect, unspecified D68.9 ; Annual physical exam Z00.00 ; Chronic iron deficiency anemia D50.9 ; Migraine, unspecified, not intractable, with status migrainosus G43.901 and Encounter for examination of blood pressure without abnormal findings Z01.30 [facility] [address] [address] 02/01/2025 ZACHARIAH RESENDIZ Assessments Encounter Date Diagnosis (ICD Code) Assessment Notes Treatment Notes Treatment Clinical Notes Section Notes 01/04/2025 Coagulation defect, unspecified (ICD-10 - D68.9) # Coagulation defect. Eval'd by heme, ? borderline VWB. PT?INR normal # Migraines. Well controlled on Ajovy. Sees Antonietta Duncan [employer] twice a year # Screenings: UTD # Vaccines: UTD #PHQ-9: 2 Patient seen and examined. Comprehensive discussion was [...] log exercise and discussed fitness Apps like [employer] which can help keep log off calories [...] Dictation was accomplished with the use of [employer] voice recognition software, prone to medical misidentifications and grammatical errors. This is unintentional and the practitioner does try to identify and correct these, but some could still be present. Please do not hesitate to contact practitioner for clarification. All questions answered to patients satisfaction. Patient verbalized understanding of diagnosis and treatments explained. To call sooner prior to next visit it any questions/concerns arise. 01/04/2025 Annual physical exam (ICD-10 - Z00.00) # Coagulation defect. Eval'd by heme, ? borderline VWB. PT?INR normal # Migraines. Well controlled on Ajovy. Sees Antonietta Duncan [employer] twice a year # Screenings: UTD # Vaccines: UTD #PHQ-9: 2 Patient seen and examined. Comprehensive discussion was [...] log exercise and discussed fitness Apps like [employer] which can help keep log off calories [...] Dictation was accomplished with the use of [employer] voice recognition software, prone to medical misidentifications and grammatical errors. This is unintentional and the practitioner does try to identify and correct these, but some could still be present. Please do not hesitate to contact practitioner for clarification. All questions answered to patients satisfaction. Patient verbalized understanding of diagnosis and treatments explained. To call sooner prior to next visit it any questions/concerns arise. 01/04/2025 Chronic iron deficiency anemia (ICD-10 - D50.9) # Coagulation defect. Eval'd by heme, ? borderline VWB. PT?INR normal # Migraines. Well controlled on Ajovy. Sees Antonietta Duncan [employer] twice a year # Screenings: UTD # Vaccines: UTD #PHQ-9: 2 Patient seen and examined. Comprehensive discussion was [...] log exercise and discussed fitness Apps like [employer] which can help keep log off calories [...] Dictation was accomplished with the use of [employer] voice recognition software, prone to medical misidentifications and grammatical errors. This is unintentional and the practitioner does try to identify and correct these, but some could still be present. Please do not hesitate to contact practitioner for clarification. All questions answered to patients satisfaction. Patient verbalized understanding of diagnosis and treatments explained. To call sooner prior to next visit it any questions/concerns arise. 01/04/2025 Migraine, unspecified, not intractable, with status migrainosus (ICD-10 - G43.901) # Coagulation defect. Eval'd by heme, ? borderline VWB. PT?INR normal # Migraines. Well controlled on Ajovy. Sees Antonietta Duncan [employer] twice a year # Screenings: UTD # Vaccines: UTD #PHQ-9: 2 Patient seen and examined. Comprehensive discussion was [...] log exercise and discussed fitness Apps like [employer] which can help keep log off calories [...] Dictation was accomplished with the use of [employer] voice recognition software, prone to medical misidentifications and grammatical errors. This is unintentional and the practitioner does try to identify and correct these, but some could still be present. Please do not hesitate to contact practitioner for clarification. All questions answered to patients satisfaction. Patient verbalized understanding of diagnosis and treatments explained. To call sooner prior to next visit it any questions/concerns arise. 01/04/2025 Encounter for examination of blood pressure without abnormal findings (ICD-10 - Z01.30) # Coagulation defect. Eval'd by heme, ? borderline VWB. PT?INR normal # Migraines. Well controlled on Ajovy. Sees Antonietta Duncan [employer] twice a year # Screenings: UTD # Vaccines: UTD #PHQ-9: 2 Patient seen and examined. Comprehensive discussion was [...] log exercise and discussed fitness Apps like [employer] which can help keep log off calories [...] Dictation was accomplished with the use of [employer] voice recognition software, prone to medical misidentifications and grammatical errors. This is unintentional and the practitioner does try to identify and correct these, but some could still be present. Please do not hesitate to contact practitioner for clarification. All questions answered to patients satisfaction. Patient verbalized understanding of diagnosis and treatments explained. To call sooner prior to next visit it any questions/concerns arise. Plan Of Treatment Pending Test Test Name Order Date PT/INR 10/16/2022 LIPID PANEL, STANDARD 01/04/2025 COMPREHENSIVE METABOLIC PANEL 01/02/2024 COMPREHENSIVE METABOLIC PANEL 01/04/2025 CBC (INCLUDES DIFF/PLT) 01/04/2025 CBC (INCLUDES DIFF/PLT) 01/02/2024 URINALYSIS, COMPLETE 01/04/2025 HEMOGLOBIN A1c 01/04/2025 TSH W/REFLEX TO FT4 01/02/2024 TSH+T3+Free T4+T3 Free 01/04/2025 Next Appt Details Provider Name:ZACHARIAH STEENA, 01/06/2026 08:00:00 AM, [address], [place], [address], Insurance Providers Payer Name Payer Address Payer Phone Subscriber Number Group Number Insured Name Patient Relationship to Insured Coverage Start Date Coverage End Date [facility] [address] [place] [address] [id number] Anna Kan Self - patient is the insured 3 Medical (General) History Medical History History ICD Code Migraine, unspecified, not intractable, without status migrainosus G43.909 Seasonal allergies J30.2 Iron deficiency anemia, unspecified D50. 9 Borderline Von Willebrand Surgical History Surgery Date(Month/Year) Septoplasty Nasal 09/01/2020
--- OUTSIDE RECORDS SUMMARY | 2025-04-30 13:27 | XMS_ITS | Clinical Summary ---
Author Organization [facility] Address [address] [place] [address] Care Team Providers Care Ore Dryer Name Role Phone Pcp, No Primary Care Provider [phone] Allergies No known active allergies Medications Ajovy Autoinjector 225 mg/1.5 mL atIn 4 Active pseudoephedrine (SUDAFED) 120 mg 12 hr tablet Take 1 tablet (120 mg total) by mouth every 12 (twelve) hours 60 tablet 11 4 04/03/20 25 sodium chloride (OCEAN) 0.65 % nasal spray Instill 1 spray into each nostril as needed for congestion or rhinitis 15 mL 12 4 04/03/20 25 Active Problems No known active problems Social [...] Adults 18 yrs or above (or HM Modifier)([facility]) 09/09/2021 Hepatitis C Virus Infection in Adolescents and Adults: Screening (or Modifier) ([facility]) 09/09/2021 SDOH Screening Reminder: Annually for all adults ([facility]) 09/09/2021 Tobacco Smoking Cessation: i n Adults excluding Women: Behavioral and Pharmacotherapy Interventions ([facility]) 09/09/2021 Cervical Cancer Screenin-65 yrs of age (or [...] through 64 years (or Modifier)([facility]) 12/11/2024 COVID-19 Vaccine Screening: Initial Series and Booster Status ([facility]) ( - 2024- season) 2025 Zoster/Shingles Vaccine Series Screening: Adults aged 18+ yrs (or HM Modifiers)([facility]) (1 of 2) 09/09/2053 10/02/2007, 09/11/2004 Pneumococcal Vaccination Screening: Pts 0-19 & 19-49 yrs of age ([facility]) Aged Out 09/11/2004, 03/23/2004, 01/24/2004, Additional history exists No longer eligible based on patient's age to complete this topic Medical Devices Not on file Insurance [facility] Care Teams Ore Dryer Relationship Specialty Start Date End Date Pcp, No PCP - General Family Medicine 04/03/24
== END 2025-04-30 12:32 | disposition home or self-care (01) ==
LOC: HO.HSMS 11:23
PROVIDERS: PCP Physician Assistant Medical; Visit Provider Nurse Practitioner Family
DX: G43.109 Migraine with aura, not intractable, without status migrainosus (principal); G44.85 Primary stabbing headache
CPT/HCPCS: 99214